=== PATIENT | female | born 1955 | race Asian ===

== ENCOUNTER 2023-01-26 18:47 | Inpatient (IN) | payer MEDICARE, OTHER ==
[~2023-01-26] VITALS: Ht 167.6 cm; Wt 54.4 kg
[2023-01-26] MEDS ORDERED: DIVA500T4 PO (19:24)
[2023-01-26] MEDS ORDERED: CALC-1143 PO (19:24)
[2023-01-26] MEDS ORDERED: ACET-2605 PO (19:24)
[2023-01-26] MEDS ORDERED: GLIP10TA11 PO (19:24)
[2023-01-26] MEDS ORDERED: ATOR80TA PO (19:24)
[2023-01-26] MEDS ORDERED: CHOL100043 PO (19:24)
[2023-01-26] MEDS ORDERED: GLUC1KIT SQ (19:24)
[2023-01-26] MEDS ORDERED: GABA-532 PO (19:24)
[2023-01-26] MEDS ORDERED: AMAN100T PO (19:24)
[2023-01-26] MEDS ORDERED: VALB40CA2 PO (19:25)
[2023-01-26] MEDS ORDERED: INSU100V28 SQ (19:25)
[2023-01-26] MEDS ORDERED: LEVO125T8 PO (19:25)
[2023-01-26] MEDS ORDERED: OLAN5TAB3 PO (19:25)
[2023-01-26] MEDS ORDERED: LOSA25TA27 PO (19:25)
[2023-01-26 19:31] VITALS: O2SAT 98
[2023-01-26 19:59] LABS: CARBON DIOXIDE 28 mmol/L (21-32); CHLORIDE 105 mmol/L (98-107); CREATININE 0.7 mg/dL (0.6-1.3); GLUCOSE 112 mg/dL (74-106); POTASSIUM 4.6 mmol/L (3.5-5.1); SODIUM SERUM 141 mmol/L (136-145); UREA NITROGEN, BLOOD 18 mg/dL (7-18)
[2023-01-26 20:02] LABS: ALANINE AMINOTRANSFERASE 44 U/L (12-78); ALKALINE PHOSPHATASE 55 U/L (46-116); ASPARTATE AMINOTRANSFERASE 35 U/L (15-37); BILIRUBIN,DIRECT 0.1 mg/dL (0.0-0.2); BILIRUBIN,TOTAL 0.5 mg/dL (0.2-1.0); LIPASE 29 U/L (16-77); TOTAL PROTEIN, SERUM 6.9 g/dL (6.4-8.2)
[2023-01-26 20:43] LABS: BASOPHILS # (AUTO) 0.1 K/uL (0.0-0.2); BASOPHILS % (AUTO) 0.5 % (0.0-2.0); EOSINOPHILS # (AUTO) 0.2 K/uL (0.0-0.7); EOSINOPHILS % (AUTO) 1.8 % (0.0-6.0); HEMATOCRIT 44 % (33-45); HEMOGLOBIN 14.4 g/dL (11.5-14.8); LYMPHOCYTES # (AUTO) 2.6 K/uL (0.8-4.8); LYMPHOCYTES % (AUTO) 23.9 % (20.0-44.0); MEAN CORPUSCULAR HEMOGLOBIN 27 PG (26.0-33.0); MEAN CORPUSCULAR HGB CONC 33 g/dl (31.0-36.0); MEAN CORPUSCULAR VOLUME 82 fL (82-100); MONOCYTES # (AUTO) 1.5 K/uL (0.1-1.30); NEUTROPHILS # (AUTO) 6.5 K/uL (1.8-8.9); NEUTROPHILS % (AUTO) 59.8 % (43.0-81.0); PLATELET COUNT (AUTO) 264 K/uL (150-450); RED BLOOD CELL COUNT(AUTO) 5.35 MIL/uL (4.0-5.2); RED CELL DISTRIBUTION WIDTH 15.3 % (11.5-15.0); WHITE BLOOD COUNT (AUTO) 10.9 K/uL (4.3-11.0)
[2023-01-26] MEDS ORDERED: MORPHINE SULFATE INJ 2 MG/ML DISP.SYRIN IV PRN (21:30)
[2023-01-26] MEDS ORDERED: DEXTROSE 50%-WATER 50 ML DISP.SYRIN IV PRN (21:30)
[2023-01-26] MEDS ORDERED: ONDANSETRON HCL/PF 4 MG/2 ML VIAL IVP PRN (21:30)
[2023-01-26] MEDS ORDERED: ACETAMINOPHEN 325 MG TABLET PO PRN (21:30)
[2023-01-26] MEDS ORDERED: Medication Not On Formulary EA (Valbenazine Tosylate (Ingrezza) 40 MG) PO SCH (22:00)
[2023-01-26 22:21] LABS: APPEARANCE,URINE SLIGHTLY CLOUDY (CLEAR); BILIRUBIN,URINE NEGATIVE (NEGATIVE); BLOOD, URINE TRACE-INTA Ery/uL (NEGATIVE); COLOR,URINE YELLOW (YELLOW); KETONES,URINE NEGATIVE (NEGATIVE); LEUKOCYTE ESTERASE ,URINE 3+ (NEGATIVE); NITRITE, URINE NEGATIVE (NEGATIVE); PH,URINE 6.5 (5.0-8.0); PROTEIN,URINE NEGATIVE (NEGATIVE); UGLUCOSE NEGATIVE (NEGATIVE); UROBILINOGEN,URINE 0.2 EU/dL (0.2)
[2023-01-26 22:26] LABS: ADD URINE CULTURE YES; BACTERIA,URINE 3+ /HPF (None Seen); WBC,URINE 51-80 /HPF (0-3)
[2023-01-26 22:50] VITALS: BP 110/52; TEMP 98.3; O2SAT 98
[2023-01-26] MEDS: BLOOD SUGAR DIAGNOSTIC 1 EACH STRIP IN SCH (23:23)
[2023-01-26] MEDS ORDERED: CEFTRIAXONE 1GM BAG (ER ONLY) 50 ML IV ONE (23:25)
[2023-01-26] MEDS: CEFTRIAXONE 1 G in IV D5W 50 ML IV SCH (23:27)
[2023-01-26] MEDS: INSULIN REGULAR, HUMAN 100 UNIT/ML 3 ML VIAL SQ PRN (23:48)
[2023-01-27] MEDS: BLOOD SUGAR DIAGNOSTIC 1 EACH STRIP IN SCH ×4 (06:30→22:12)
[2023-01-27] MEDS: INSULIN REGULAR, HUMAN 100 UNIT/ML 3 ML VIAL SQ PRN ×3 (06:33→22:13)
[2023-01-27 07:00] VITALS: BP 101/76; TEMP 97.7; O2SAT 94
[2023-01-27] MEDS: LEVOTHYROXINE SODIUM 125 MCG TABLET PO SCH (07:42)
[2023-01-27 07:48] LABS: INR 0.91 (0.91-1.10); PARTIAL THROMBOPLASTIN TIME 20.4 SEC (24.3-34.3); PROTHROMBIN TIME 9.7 SECS (9.2-11.1)
[2023-01-27 07:49] LABS: BASOPHILS # (AUTO) 0.1 K/uL (0.0-0.2); BASOPHILS % (AUTO) 0.7 % (0.0-2.0); EOSINOPHILS # (AUTO) 0.2 K/uL (0.0-0.7); EOSINOPHILS % (AUTO) 1.6 % (0.0-6.0); HEMATOCRIT 42 % (33-45); HEMOGLOBIN 13.9 g/dL (11.5-14.8); LYMPHOCYTES # (AUTO) 2.3 K/uL (0.8-4.8); LYMPHOCYTES % (AUTO) 22.1 % (20.0-44.0); MEAN CORPUSCULAR HEMOGLOBIN 27 PG (26.0-33.0); MEAN CORPUSCULAR HGB CONC 33 g/dl (31.0-36.0); MEAN CORPUSCULAR VOLUME 83 fL (82-100); MONOCYTES # (AUTO) 1.5 K/uL (0.1-1.30); MONOCYTES % (AUTO) 14.6 % (2.0-12.0); NEUTROPHILS # (AUTO) 6.4 K/uL (1.8-8.9); PLATELET COUNT (AUTO) 257 K/uL (150-450); RED BLOOD CELL COUNT(AUTO) 5.12 MIL/uL (4.0-5.2); RED CELL DISTRIBUTION WIDTH 15.4 % (11.5-15.0); WHITE BLOOD COUNT (AUTO) 10.5 K/uL (4.3-11.0)
[2023-01-27 08:01] LABS: ALBUMIN 2.8 g/dL (3.4-5.0); BILIRUBIN,TOTAL 0.5 mg/dL (0.2-1.0); CALCIUM, SERUM 8.7 mg/dL (8.5-10.1); CREATININE 0.5 mg/dL (0.6-1.3); MAGNESIUM 2.5 mg/dL (1.8-2.4); PHOSPHORUS 3.8 mg/dL (2.5-4.9); POTASSIUM 4.6 mmol/L (3.5-5.1); TOTAL PROTEIN, SERUM 6.9 g/dL (6.4-8.2)
[2023-01-27] MEDS: DOCUSATE SODIUM 100 MG CAPSULE PO SCH ×2 (08:05→17:53)
[2023-01-27] MEDS: AMANTADINE HCL 100 MG CAPSULE PO SCH ×2 (08:05→17:53)
[2023-01-27] MEDS: LOSARTAN POTASSIUM 25 MG TABLET PO SCH (08:06)
[2023-01-27] MEDS: DIVALPROEX SODIUM 500 MG TABLET.DR PO SCH ×2 (08:06→17:53)
[2023-01-27] MEDS: CALCIUM CARBONATE (1250) 500 MG TABLET PO SCH (08:06)
[2023-01-27] MEDS: POLYETHYLENE GLYCOL 3350 17 GM POWD.PACK PO SCH (09:33)
[2023-01-27] MEDS: HEPARIN SODIUM, PORCINE 5000 UNITS/1 ML VIAL SQ SCH ×2 (09:35→20:57)
[2023-01-27 16:00] VITALS: BP 128/93; TEMP 97.6; O2SAT 97
[2023-01-27] MEDS: GLUCERNA SHAKE 237 ML CAN PO SCH (17:53)
[2023-01-27] MEDS: ATORVASTATIN 40 MG TABLET PO SCH (17:53)
[2023-01-27] MEDS: GABAPENTIN 100 MG CAPSULE PO SCH (17:53)
[2023-01-27] MEDS ORDERED: OLANZAPINE 5 MG TABLET PO SCH (18:00)
[2023-01-27] MEDS: OLANZAPINE 5 MG TABLET PO SCH (18:07)
[2023-01-27 20:00] VITALS: BP 124/71; TEMP 99; O2SAT 94
[2023-01-27] MEDS: CEFTRIAXONE 1 G in IV D5W 50 ML IV SCH (22:37)
[2023-01-28] MEDS: BLOOD SUGAR DIAGNOSTIC 1 EACH STRIP IN SCH ×4 (06:48→21:36)
[2023-01-28 07:00] VITALS: BP 131/74; TEMP 97.9; O2SAT 97
[2023-01-28] MEDS: LEVOTHYROXINE SODIUM 125 MCG TABLET PO SCH (07:22)
[2023-01-28] MEDS: DIVALPROEX SODIUM 500 MG TABLET.DR PO SCH ×2 (08:12→16:04)
[2023-01-28] MEDS: LOSARTAN POTASSIUM 25 MG TABLET PO SCH (08:13)
[2023-01-28] MEDS: AMANTADINE HCL 100 MG CAPSULE PO SCH ×2 (08:13→16:04)
[2023-01-28] MEDS: DOCUSATE SODIUM 100 MG CAPSULE PO SCH ×2 (08:13→16:04)
[2023-01-28] MEDS: CALCIUM CARBONATE (1250) 500 MG TABLET PO SCH (08:13)
[2023-01-28] MEDS: POLYETHYLENE GLYCOL 3350 17 GM POWD.PACK PO SCH (08:14)
[2023-01-28] MEDS: GLUCERNA SHAKE 237 ML CAN PO SCH ×2 (08:14→17:10)
[2023-01-28] MEDS: HEPARIN SODIUM, PORCINE 5000 UNITS/1 ML VIAL SQ SCH ×2 (08:22→20:29)
[2023-01-28] MEDS: INSULIN REGULAR, HUMAN 100 UNIT/ML 3 ML VIAL SQ PRN ×3 (11:20→22:20)
[2023-01-28 12:40] LABS: THYROID STIMULATING HORMONE 0.497 uIU/mL (0.358-3.74)
[2023-01-28 16:00] VITALS: BP 112/78; TEMP 97.9; O2SAT 94
[2023-01-28] MEDS: OLANZAPINE 5 MG TABLET PO SCH (17:10)
[2023-01-28] MEDS: ATORVASTATIN 40 MG TABLET PO SCH (17:10)
[2023-01-28] MEDS: GABAPENTIN 100 MG CAPSULE PO SCH (17:10)
[2023-01-28 20:00] VITALS: BP 116/64; TEMP 98.6; O2SAT 94
[2023-01-28] MEDS: CEFTRIAXONE 1 G in IV D5W 50 ML IV SCH (22:18)
[2023-01-29] MEDS: INSULIN REGULAR, HUMAN 100 UNIT/ML 3 ML VIAL SQ PRN ×3 (06:50→17:09)
[2023-01-29] MEDS: BLOOD SUGAR DIAGNOSTIC 1 EACH STRIP IN SCH ×3 (07:30→17:06)
[2023-01-29 08:00] VITALS: BP 125/78; TEMP 98.2; O2SAT 95
[2023-01-29] MEDS: POLYETHYLENE GLYCOL 3350 17 GM POWD.PACK PO SCH (08:53)
[2023-01-29] MEDS: AMANTADINE HCL 100 MG CAPSULE PO SCH ×2 (08:53→17:05)
[2023-01-29] MEDS: LEVOTHYROXINE SODIUM 125 MCG TABLET PO SCH (08:53)
[2023-01-29] MEDS: DIVALPROEX SODIUM 500 MG TABLET.DR PO SCH ×2 (08:53→17:05)
[2023-01-29 08:54] VITALS: BP 125/78
[2023-01-29] MEDS: LOSARTAN POTASSIUM 25 MG TABLET PO SCH (08:54)
[2023-01-29] MEDS: DOCUSATE SODIUM 100 MG CAPSULE PO SCH ×2 (08:54→17:05)
[2023-01-29] MEDS: CALCIUM CARBONATE (1250) 500 MG TABLET PO SCH (08:54)
[2023-01-29] MEDS: GLUCERNA SHAKE 237 ML CAN PO SCH ×2 (08:55→17:06)
[2023-01-29] MEDS: HEPARIN SODIUM, PORCINE 5000 UNITS/1 ML VIAL SQ SCH (09:00)
[2023-01-29] MEDS: GABAPENTIN 100 MG CAPSULE PO SCH (18:13)
[2023-01-29] MEDS: ATORVASTATIN 40 MG TABLET PO SCH (18:13)
[2023-01-29] MEDS: OLANZAPINE 5 MG TABLET PO SCH (18:14)
[2023-01-30 01:06] LABS: FOLIC ACID > 20.0 ng/mL (>3.0)
== END 2023-01-29 18:30 | DRG 689 ==
LOC: ER 19:02 → MED 22:04
PROVIDERS: ADMIT Internal Medicine; ATTEND Nurse Practitioner Acute Care
DX: N39.0 Urinary tract infection, site not specified (principal); G93.41 Metabolic encephalopathy; E44.0 Moderate protein-calorie malnutrition; Z68.1 Body mass index [BMI] 19.9 or less, adult; R62.7 Adult failure to thrive; E03.9 Hypothyroidism, unspecified; E78.5 Hyperlipidemia, unspecified; E88.09 Other disorders of plasma-protein metabolism, not elsewhere classified; I10 Essential (primary) hypertension; Z79.84 Long term (current) use of oral hypoglycemic drugs; F03.90 Unspecified dementia, unspecified severity, without behavioral disturbance, psychotic disturbance, mood disturbance, and anxiety; M62.50 Muscle wasting and atrophy, not elsewhere classified, unspecified site; F25.0 Schizoaffective disorder, bipolar type; E11.9 Type 2 diabetes mellitus without complications; H70.93 Unspecified mastoiditis, bilateral; B96.89 Other specified bacterial agents as the cause of diseases classified elsewhere
CPT/HCPCS: 36415; 70450-TC; 71045-TC; 80048-TC; 80053-TC; 80076-TC; 80164-TC; 81001; 82607-TC; 82962-TC; 83605-TC; 83690-TC; 83735-TC; 83921; 84100-TC; 84439-TC; 84443-TC; 84484-TC; 85025-TC; 85730-TC; 87081-TC; 87086-TC; 92526; 92611-TC; 97110-TC; 97116-TC; 97530-TC; A4223; G0378; J0696; J1644; J1815; J7050; J7060

== ENCOUNTER 2023-07-26 23:14 | Inpatient (IN) | payer MEDICARE, OTHER ==
[~2023-07-26] VITALS: Ht 162.6 cm; Wt 58.1 kg
[~2023-07-26 23:14] MED LIST: ACET-2605 PO; AMAN100T PO; ATOR80TA PO; CALC-1143 PO; CHOL100043 PO; DIVA500T4 PO; GABA-532 PO; GLIP10TA11 PO; GLUC1KIT SQ; INSU100V28 SQ; LEVO125T8 PO; LOSA25TA27 PO; OLAN5TAB3 PO; VALB40CA2 PO
[2023-07-27 00:12] LABS: BASOPHILS # (AUTO) 0.1 K/uL (0.0-0.2); BASOPHILS % (AUTO) 0.9 % (0.0-2.0); EOSINOPHILS # (AUTO) 0.2 K/uL (0.0-0.7); EOSINOPHILS % (AUTO) 1.9 % (0.0-6.0); HEMATOCRIT 44 % (33-45); HEMOGLOBIN 14.4 g/dL (11.5-14.8); LYMPHOCYTES # (AUTO) 2.8 K/uL (0.8-4.8); LYMPHOCYTES % (AUTO) 22.2 % (20.0-44.0); MEAN CORPUSCULAR HEMOGLOBIN 26 PG (26.0-33.0); MEAN CORPUSCULAR HGB CONC 32 g/dl (31.0-36.0); MEAN CORPUSCULAR VOLUME 81 fL (82-100); MONOCYTES # (AUTO) 1.5 K/uL (0.1-1.30); NEUTROPHILS # (AUTO) 7.9 K/uL (1.8-8.9); PLATELET COUNT (AUTO) 293 K/uL (150-450); RED CELL DISTRIBUTION WIDTH 13.9 % (11.5-15.0); WHITE BLOOD COUNT (AUTO) 12.6 K/uL (4.3-11.0)
[2023-07-27 00:17] LABS: INR 0.94 (0.91-1.10)
[2023-07-27 00:34] LABS: CALCIUM, SERUM 9.5 mg/dL (8.5-10.1); CREATININE 0.6 mg/dL (0.6-1.3); POTASSIUM 5.5 mmol/L (3.5-5.1)
[2023-07-27] MEDS: ALBUTEROL FS 2.5 MG/0.5 ML VIAL.NEB NEB ONE (00:55)
[2023-07-27 00:56] VITALS: O2SAT 94
[2023-07-27] MEDS ORDERED: ALBUTEROL FS 2.5 MG/0.5 ML VIAL.NEB ONE (00:57)
[2023-07-27 01:08] VITALS: O2SAT 99
[2023-07-27] MEDS ORDERED: FUROSEMIDE 20 MG/2 ML VIAL ONE (01:10)
[2023-07-27] MEDS ORDERED: SODIUM BICARBONATE SYR 50 MEQ/50 ML DISP.SYRIN ONE (01:11)
[2023-07-27 01:19] LABS: APPEARANCE,URINE CLEAR (CLEAR); BILIRUBIN,URINE NEGATIVE (NEGATIVE); BLOOD, URINE NEGATIVE Ery/uL (NEGATIVE); COLOR,URINE YELLOW (YELLOW); KETONES,URINE NEGATIVE (NEGATIVE); LEUKOCYTE ESTERASE ,URINE TRACE (NEGATIVE); NITRITE, URINE NEGATIVE (NEGATIVE); PH,URINE 6.5 (5.0-8.0); PROTEIN,URINE NEGATIVE (NEGATIVE); UGLUCOSE NEGATIVE (NEGATIVE); UROBILINOGEN,URINE 0.2 EU/dL (0.2)
[2023-07-27] MEDS: IV NS 0.9% 1,000 ML BAG IV ONE (01:30)
[2023-07-27] MEDS: FUROSEMIDE 40 MG/4 ML VIAL IV ONE (01:30)
[2023-07-27] MEDS: SODIUM BICARBONATE SYR 50 MEQ/50 ML DISP.SYRIN IV ONE (01:30)
[2023-07-27 02:01] LABS: ADD URINE CULTURE YES; BACTERIA,URINE Rare /HPF (None Seen); RBC,URINE 0-2 /HPF (0-2); SQUAMOUS EPITHELIAL CELL,UR Moderate /HPF (None Seen)
[2023-07-27] MEDS ORDERED: BENZ0.5T43 PO (07:49)
[2023-07-27] MEDS ORDERED: CALC500T88 PO (07:49)
[2023-07-27] MEDS ORDERED: DIVA250T47 PO (07:49)
[2023-07-27] MEDS ORDERED: OLAN2.5T3 PO (07:49)
[2023-07-27] MEDS ORDERED: ACETAMINOPHEN 325 MG TABLET PO PRN (12:00)
[2023-07-27] MEDS ORDERED: MAGNESIUM HYDROXIDE 30 ML UDC PO PRN (12:00)
[2023-07-27] MEDS ORDERED: ONDANSETRON HCL/PF 4 MG/2 ML VIAL IVP PRN (12:00)
[2023-07-27] MEDS ORDERED: MAG HYDROX/AL HYDROX/SIMETH 30 ML UDC PO PRN (12:00)
[2023-07-27] MEDS ORDERED: ENOXAPARIN SODIUM 40 MG/0.4 ML DISP.SYRIN SQ ONE ×2 (12:09→12:31)
[2023-07-27] MEDS: ENOXAPARIN SODIUM 40 MG/0.4 ML DISP.SYRIN SQ SCH (12:32)
[2023-07-27 16:00] VITALS: BP 152/93; TEMP 98.1; O2SAT 98
[2023-07-27] MEDS: IV D5/0.45 NACL 1,000 ML IV PRN (16:53)
[2023-07-27 17:10] LABS: ALBUMIN 3.2 g/dL (3.4-5.0); BILIRUBIN,TOTAL 0.6 mg/dL (0.2-1.0); CALCIUM, SERUM 8.4 mg/dL (8.5-10.1); CREATININE 0.7 mg/dL (0.6-1.3); TOTAL PROTEIN, SERUM 7.7 g/dL (6.4-8.2)
[2023-07-27] MEDS ORDERED: ACETAMINOPHEN ES 500 MG TABLET PO PRN (19:00)
[2023-07-27] MEDS ORDERED: DEXTROSE 50%-WATER 50 ML DISP.SYRIN IV PRN (19:00)
[2023-07-27] MEDS ORDERED: GLUCAGON,HUMAN RECOMBINANT 1 MG/VIAL VIAL SQ PRN (19:00)
[2023-07-27 20:00] VITALS: BP 142/71; TEMP 98.8; O2SAT 96
[2023-07-27] MEDS: BLOOD SUGAR DIAGNOSTIC 1 EACH STRIP VI SCH (21:10)
[2023-07-27] MEDS: *INSULIN REGULAR(HUMULIN R)HUM 100 UNIT/ML VIAL SQ PRN (21:18)
[2023-07-27] MEDS: Z GUARD REMEDY 4 OZ OINT TP PRN (21:20)
[2023-07-27] MEDS: ZOLPIDEM TARTRATE 5 MG TABLET PO PRN (22:48)
[2023-07-28] MEDS: INSULIN REGULAR, HUMAN 100 UNIT/ML 3 ML VIAL SQ PRN (06:30)
[2023-07-28 07:54] LABS: BASOPHILS # (AUTO) 0.1 K/uL (0.0-0.2); EOSINOPHILS # (AUTO) 0.2 K/uL (0.0-0.7); EOSINOPHILS % (AUTO) 1.9 % (0.0-6.0); HEMATOCRIT 41 % (33-45); HEMOGLOBIN 13.8 g/dL (11.5-14.8); LYMPHOCYTES # (AUTO) 2.1 K/uL (0.8-4.8); MEAN CORPUSCULAR HEMOGLOBIN 27 PG (26.0-33.0); MEAN CORPUSCULAR HGB CONC 34 g/dl (31.0-36.0); MEAN CORPUSCULAR VOLUME 80 fL (82-100); MONOCYTES # (AUTO) 1.2 K/uL (0.1-1.30); MONOCYTES % (AUTO) 11.9 % (2.0-12.0); NEUTROPHILS # (AUTO) 6.8 K/uL (1.8-8.9); NEUTROPHILS % (AUTO) 65.2 % (43.0-81.0); PLATELET COUNT (AUTO) 302 K/uL (150-450); RED BLOOD CELL COUNT(AUTO) 5.15 MIL/uL (4.0-5.2); RED CELL DISTRIBUTION WIDTH 13.7 % (11.5-15.0); WHITE BLOOD COUNT (AUTO) 10.4 K/uL (4.3-11.0)
[2023-07-28 07:55] LABS: CALCIUM, SERUM 8.4 mg/dL (8.5-10.1); CREATININE 0.6 mg/dL (0.6-1.3); MAGNESIUM 2.3 mg/dL (1.8-2.4); PHOSPHORUS 3.6 mg/dL (2.5-4.9); POTASSIUM 4.3 mmol/L (3.5-5.1)
[2023-07-28 08:00] VITALS: BP 151/61; TEMP 97.4; O2SAT 99
[2023-07-28] MEDS: LEVOTHYROXINE SODIUM 125 MCG TABLET PO SCH (08:48)
[2023-07-28] MEDS: DIVALPROEX SODIUM 250 MG TABLET.DR PO SCH (08:48)
[2023-07-28] MEDS: PANTOPRAZOLE 40 MG TABLET.DR PO SCH (08:48)
[2023-07-28] MEDS: BENZTROPINE MESYLATE (1 MG) 1 MG TABLET PO SCH (08:49)
[2023-07-28] MEDS: LOSARTAN POTASSIUM 25 MG TABLET PO SCH (08:49)
[2023-07-28] MEDS: OLANZAPINE 2.5 MG TABLET PO SCH (08:49)
[2023-07-28] MEDS: CHOLECALCIFEROL 1,000 UNIT TABLET (VIT D3) PO SCH (08:49)
[2023-07-28] MEDS: CALCIUM CARBONATE (1250) 500 MG TABLET PO SCH (08:54)
[2023-07-28] MEDS: glipiZIDE 10 MG TABLET PO SCH (08:54)
[2023-07-28 09:15] LABS: THYROID STIMULATING HORMONE 1.378 uIU/mL (0.358-3.74)
[2023-07-28 16:00] VITALS: BP 131/62; TEMP 97.9; O2SAT 96
[2023-07-28] MEDS: GABAPENTIN 100 MG CAPSULE PO SCH (17:06)
[2023-07-28] MEDS: ATORVASTATIN 40 MG TABLET PO SCH (17:06)
[2023-07-28 20:00] VITALS: BP 132/89; TEMP 99; O2SAT 96
[2023-07-29 08:00] VITALS: BP 140/97; TEMP 98.6; O2SAT 98
[2023-07-29 08:23] LABS: BASOPHILS # (AUTO) 0.1 K/uL (0.0-0.2); BASOPHILS % (AUTO) 0.9 % (0.0-2.0); EOSINOPHILS # (AUTO) 0.2 K/uL (0.0-0.7); EOSINOPHILS % (AUTO) 1.2 % (0.0-6.0); HEMATOCRIT 40 % (33-45); HEMOGLOBIN 13.2 g/dL (11.5-14.8); LYMPHOCYTES # (AUTO) 1.9 K/uL (0.8-4.8); LYMPHOCYTES % (AUTO) 15.2 % (20.0-44.0); MEAN CORPUSCULAR HEMOGLOBIN 26 PG (26.0-33.0); MEAN CORPUSCULAR HGB CONC 33 g/dl (31.0-36.0); MEAN CORPUSCULAR VOLUME 80 fL (82-100); MONOCYTES # (AUTO) 1.5 K/uL (0.1-1.30); MONOCYTES % (AUTO) 12.1 % (2.0-12.0); NEUTROPHILS # (AUTO) 8.6 K/uL (1.8-8.9); NEUTROPHILS % (AUTO) 70.6 % (43.0-81.0); PLATELET COUNT (AUTO) 291 K/uL (150-450); RED BLOOD CELL COUNT(AUTO) 5.02 MIL/uL (4.0-5.2); RED CELL DISTRIBUTION WIDTH 13.9 % (11.5-15.0); WHITE BLOOD COUNT (AUTO) 12.2 K/uL (4.3-11.0)
[2023-07-29 08:48] LABS: CALCIUM, SERUM 8.3 mg/dL (8.5-10.1); CREATININE 0.8 mg/dL (0.6-1.3); MAGNESIUM 2.2 mg/dL (1.8-2.4); PHOSPHORUS 3.2 mg/dL (2.5-4.9); POTASSIUM 4.3 mmol/L (3.5-5.1)
[2023-07-29 16:00] VITALS: BP 110/76; TEMP 98.5; O2SAT 96
[2023-07-29 20:00] VITALS: BP 119/57; TEMP 98.6; O2SAT 96
[2023-07-30 06:48] LABS: BASOPHILS # (AUTO) 0.1 K/uL (0.0-0.2); BASOPHILS % (AUTO) 0.6 % (0.0-2.0); EOSINOPHILS # (AUTO) 0.3 K/uL (0.0-0.7); EOSINOPHILS % (AUTO) 2.2 % (0.0-6.0); HEMATOCRIT 40 % (33-45); LYMPHOCYTES # (AUTO) 2.8 K/uL (0.8-4.8); LYMPHOCYTES % (AUTO) 23.1 % (20.0-44.0); MEAN CORPUSCULAR HEMOGLOBIN 27 PG (26.0-33.0); MEAN CORPUSCULAR HGB CONC 33 g/dl (31.0-36.0); MEAN CORPUSCULAR VOLUME 81 fL (82-100); MONOCYTES # (AUTO) 1.7 K/uL (0.1-1.30); MONOCYTES % (AUTO) 13.8 % (2.0-12.0); NEUTROPHILS # (AUTO) 7.2 K/uL (1.8-8.9); NEUTROPHILS % (AUTO) 60.3 % (43.0-81.0); PLATELET COUNT (AUTO) 274 K/uL (150-450); RED BLOOD CELL COUNT(AUTO) 4.85 MIL/uL (4.0-5.2); RED CELL DISTRIBUTION WIDTH 14.2 % (11.5-15.0)
[2023-07-30 06:58] LABS: CALCIUM, SERUM 8.3 mg/dL (8.5-10.1); CREATININE 0.7 mg/dL (0.6-1.3); PHOSPHORUS 3.5 mg/dL (2.5-4.9); POTASSIUM 4.1 mmol/L (3.5-5.1)
[2023-07-30 08:00] VITALS: BP 136/100; TEMP 100.1; O2SAT 97
[2023-07-30 08:20] VITALS: BP 132/100
== END 2023-07-30 12:50 | DRG 641 ==
LOC: ER 23:20 → TRANSITION 07-27 06:14 → MED 07-27 14:48
PROVIDERS: ADMIT Student in an Organized Health Care Education/Training Program; ATTEND Student in an Organized Health Care Education/Training Program
DX: R62.7 Adult failure to thrive (principal); N39.0 Urinary tract infection, site not specified; E46 Unspecified protein-calorie malnutrition; G93.49 Other encephalopathy; E87.5 Hyperkalemia; F31.9 Bipolar disorder, unspecified; R13.10 Dysphagia, unspecified; E03.9 Hypothyroidism, unspecified; E11.42 Type 2 diabetes mellitus with diabetic polyneuropathy; E78.5 Hyperlipidemia, unspecified; F25.9 Schizoaffective disorder, unspecified; I10 Essential (primary) hypertension; Z79.84 Long term (current) use of oral hypoglycemic drugs; Z68.22 Body mass index [BMI] 22.0-22.9, adult; F03.90 Unspecified dementia, unspecified severity, without behavioral disturbance, psychotic disturbance, mood disturbance, and anxiety; S91.101A Unspecified open wound of right great toe without damage to nail, initial encounter; X58.XXXA Exposure to other specified factors, initial encounter; Y93.9 Activity, unspecified; Y92.129 Unspecified place in nursing home as the place of occurrence of the external cause; S91.204A Unspecified open wound of right lesser toe(s) with damage to nail, initial encounter; S81.802A Unspecified open wound, left lower leg, initial encounter; Z79.4 Long term (current) use of insulin; D72.829 Elevated white blood cell count, unspecified
CPT/HCPCS: 36415; 71045-TC; 80048-TC; 80053-TC; 81001; 82962-TC; 83735-TC; 84100-TC; 84443-TC; 85025-TC; 85730-TC; 87081-TC; 87086-TC; 97112-TC; 97116-TC; 97530-TC; A4223; G0378; J1650; J1815; J1940; J3490; J7030

== ENCOUNTER 2024-01-25 17:00 | Inpatient (IN) | payer MEDICARE, OTHER ==
[~2024-01-25] VITALS: Ht 160 cm; Wt 59.2 kg
[~2024-01-25 17:00] MED LIST changes: -AMAN100T PO; +BENZ0.5T43 PO; -CALC-1143 PO; +CALC500T88 PO; +DIVA250T47 PO; -DIVA500T4 PO; +OLAN2.5T3 PO; -OLAN5TAB3 PO; -VALB40CA2 PO
[2024-01-25] MEDS: IV NS 0.9% 1,000 ML BAG IV ONE (17:47)
[2024-01-25 17:48] LABS: BASOPHILS # (AUTO) 0.1 K/uL (0.0-0.2); BASOPHILS % (AUTO) 0.6 % (0.0-2.0); EOSINOPHILS # (AUTO) 0.2 K/uL (0.0-0.7); EOSINOPHILS % (AUTO) 1.3 % (0.0-6.0); HEMATOCRIT 40 % (33-45); HEMOGLOBIN 13.1 g/dL (11.5-14.8); LYMPHOCYTES # (AUTO) 1.5 K/uL (0.8-4.8); LYMPHOCYTES % (AUTO) 10.6 % (20.0-44.0); MEAN CORPUSCULAR HEMOGLOBIN 26 PG (26.0-33.0); MEAN CORPUSCULAR HGB CONC 33 g/dl (31.0-36.0); MEAN CORPUSCULAR VOLUME 80 fL (82-100); MONOCYTES % (AUTO) 13.8 % (2.0-12.0); NEUTROPHILS # (AUTO) 10.6 K/uL (1.8-8.9); NEUTROPHILS % (AUTO) 73.7 % (43.0-81.0); PLATELET COUNT (AUTO) 334 K/uL (150-450); RED BLOOD CELL COUNT(AUTO) 4.96 MIL/uL (4.0-5.2); RED CELL DISTRIBUTION WIDTH 13.6 % (11.5-15.0); WHITE BLOOD COUNT (AUTO) 14.3 K/uL (4.3-11.0)
[2024-01-25 17:50] LABS: CARBON DIOXIDE 31 mmol/L (21-32); CHLORIDE 102 mmol/L (98-107); CREATININE 0.5 mg/dL (0.6-1.3); GLUCOSE 116 mg/dL (74-106); POTASSIUM 4.6 mmol/L (3.5-5.1); SODIUM SERUM 139 mmol/L (136-145); UREA NITROGEN, BLOOD 13 mg/dL (7-18)
[2024-01-25 17:51] LABS: INR 0.96 (0.91-1.10); PARTIAL THROMBOPLASTIN TIME 26.1 SEC (24.3-34.3); PROTHROMBIN TIME 10.2 SECS (9.2-11.1)
[2024-01-25 17:56] LABS: ALANINE AMINOTRANSFERASE 32 U/L (12-78); ALBUMIN 3.5 g/dL (3.4-5.0); ALKALINE PHOSPHATASE 74 U/L (46-116); ASPARTATE AMINOTRANSFERASE 13 U/L (15-37); BILIRUBIN,DIRECT 0.1 mg/dL (0.0-0.2); BILIRUBIN,TOTAL 0.4 mg/dL (0.2-1.0); LIPASE 58 U/L (16-77); TOTAL PROTEIN, SERUM 7.5 g/dL (6.4-8.2)
[2024-01-25 18:00] LABS: LACTIC ACID 2.7 mmol/L (0.4-2.0)
[2024-01-25] MEDS ORDERED: CALC-1239 PO (18:06)
[2024-01-25] MEDS ORDERED: MAGN400O6 PO (18:06)
[2024-01-25] MEDS ORDERED: BISA10SU11 RC (18:06)
[2024-01-25] MEDS ORDERED: METF-440 PO (18:06)
[2024-01-25] MEDS ORDERED: NA P133E RC (18:06)
[2024-01-25] MEDS ORDERED: ACET-868 PO (18:06)
[2024-01-25] MEDS ORDERED: INSU100I30 SQ (18:06)
[2024-01-25] MEDS ORDERED: ONDANSETRON HCL/PF 4 MG/2 ML VIAL IVP PRN (18:30)
[2024-01-25] MEDS ORDERED: MAGNESIUM HYDROXIDE 30 ML UDC PO PRN ×2 (18:30)
[2024-01-25] MEDS ORDERED: NA PHOS,M-B/NA PHOS,DI-BA 1 EA ENEMA RC PRN (18:30)
[2024-01-25] MEDS ORDERED: Medication Not On Formulary EA (Glucagon,Human Recombinant (Glucagon Emergency Kit) 1 MG SQ PRN (18:30)
[2024-01-25] MEDS ORDERED: Z GUARD REMEDY 4 OZ OINT TP PRN (18:30)
[2024-01-25] MEDS ORDERED: ACETAMINOPHEN 325 MG TABLET PO PRN ×2 (18:30)
[2024-01-25] MEDS ORDERED: BISACODYL SUPP (10 MG) 10 MG/SUPP.RECT SUPP.RECT RC PRN (18:30)
[2024-01-25] MEDS ORDERED: MAG HYDROX/AL HYDROX/SIMETH 30 ML UDC PO PRN (18:30)
[2024-01-25] MEDS ORDERED: DEXTROSE 50%-WATER 50 ML DISP.SYRIN IV PRN (18:30)
[2024-01-25 18:56] LABS: APPEARANCE,URINE CLEAR (CLEAR); BILIRUBIN,URINE NEGATIVE (NEGATIVE); BLOOD, URINE TRACE-INTA Ery/uL (NEGATIVE); COLOR,URINE YELLOW (YELLOW); KETONES,URINE NEGATIVE (NEGATIVE); LEUKOCYTE ESTERASE ,URINE 3+ (NEGATIVE); NITRITE, URINE POSITIVE (NEGATIVE); PROTEIN,URINE NEGATIVE (NEGATIVE); UGLUCOSE NEGATIVE (NEGATIVE); UROBILINOGEN,URINE 0.2 EU/dL (0.2)
[2024-01-25 19:00] LABS: ADD URINE CULTURE YES; BACTERIA,URINE 1+ /HPF (None Seen)
[2024-01-25 19:10] VITALS: O2SAT 97
[2024-01-25 19:35] VITALS: BP 145/68; TEMP 98.6; O2SAT 97
[2024-01-25] MEDS ORDERED: CEFTRIAXONE 1GM BAG (ER ONLY) 50 ML IV ONE (22:00)
[2024-01-25] MEDS: CEFTRIAXONE 1 G in IV D5W 50 ML IV SCH (22:05)
[2024-01-25] MEDS: BLOOD SUGAR DIAGNOSTIC 1 EACH STRIP VI SCH (22:06)
[2024-01-25] MEDS: IV NS 0.9% 1,000 ML IV PRN (22:06)
[2024-01-25] MEDS: INSULIN REGULAR, HUMAN 100 UNIT/ML 3 ML VIAL SQ PRN (22:37)
[2024-01-25] MEDS: INSULIN GLARGINE, 100 UNIT/ML CARTRIDGE SQ SCH (22:38)
[2024-01-26 06:33] LABS: BASOPHILS # (AUTO) 0.1 K/uL (0.0-0.2); BASOPHILS % (AUTO) 0.7 % (0.0-2.0); EOSINOPHILS # (AUTO) 0.2 K/uL (0.0-0.7); EOSINOPHILS % (AUTO) 1.6 % (0.0-6.0); HEMATOCRIT 37 % (33-45); LYMPHOCYTES # (AUTO) 1.3 K/uL (0.8-4.8); LYMPHOCYTES % (AUTO) 10.5 % (20.0-44.0); MEAN CORPUSCULAR HEMOGLOBIN 26 PG (26.0-33.0); MEAN CORPUSCULAR HGB CONC 33 g/dl (31.0-36.0); MEAN CORPUSCULAR VOLUME 79 fL (82-100); MONOCYTES % (AUTO) 16.3 % (2.0-12.0); NEUTROPHILS # (AUTO) 8.6 K/uL (1.8-8.9); NEUTROPHILS % (AUTO) 70.9 % (43.0-81.0); PLATELET COUNT (AUTO) 302 K/uL (150-450); RED BLOOD CELL COUNT(AUTO) 4.64 MIL/uL (4.0-5.2); RED CELL DISTRIBUTION WIDTH 14.1 % (11.5-15.0); WHITE BLOOD COUNT (AUTO) 12.2 K/uL (4.3-11.0)
[2024-01-26 06:49] LABS: CALCIUM, SERUM 8.8 mg/dL (8.5-10.1); CREATININE 0.5 mg/dL (0.6-1.3); MAGNESIUM 2.1 mg/dL (1.8-2.4); PHOSPHORUS 3.2 mg/dL (2.5-4.9); POTASSIUM 4.1 mmol/L (3.5-5.1)
[2024-01-26] MEDS: LEVOTHYROXINE SODIUM 125 MCG TABLET PO SCH (07:26)
[2024-01-26] MEDS: DIVALPROEX SODIUM 250 MG TABLET.DR PO SCH (08:36)
[2024-01-26] MEDS: LOSARTAN POTASSIUM 25 MG TABLET PO SCH (08:36)
[2024-01-26] MEDS: GABAPENTIN 100 MG CAPSULE PO SCH (08:36)
[2024-01-26] MEDS: BENZTROPINE MESYLATE (1 MG) 1 MG TABLET PO SCH (08:36)
[2024-01-26 20:00] VITALS: BP 157/87; TEMP 97.9; O2SAT 95
[2024-01-26] MEDS: *INSULIN REGULAR(HUMULIN R)HUM 100 UNIT/ML VIAL SQ PRN (22:18)
[2024-01-27 08:30] VITALS: BP 147/65; TEMP 99.3; O2SAT 94
[2024-01-27 16:00] VITALS: BP 141/76; TEMP 98.9; O2SAT 98
[2024-01-27 20:00] VITALS: BP 154/83; TEMP 98.4; O2SAT 96
[2024-01-27] MEDS ORDERED: MUPIROCIN OINT 2% 22 GM TUBE ONE (23:19)
[2024-01-27] MEDS: MUPIROCIN OINT 2% 22 GM TUBE NS SCH (23:25)
[2024-01-28 08:27] VITALS: BP 133/72
== END 2024-01-28 15:00 | DRG 689 ==
LOC: ER 17:05 → MED 18:57
PROVIDERS: ADMIT Internal Medicine; ATTEND Internal Medicine
DX: N39.0 Urinary tract infection, site not specified (principal); G93.41 Metabolic encephalopathy; E87.20 Acidosis, unspecified; F03.93 Unspecified dementia, unspecified severity, with mood disturbance; E86.0 Dehydration; E11.9 Type 2 diabetes mellitus without complications; R62.7 Adult failure to thrive; E03.9 Hypothyroidism, unspecified; E78.5 Hyperlipidemia, unspecified; F20.9 Schizophrenia, unspecified; I10 Essential (primary) hypertension; Z79.4 Long term (current) use of insulin; Z79.84 Long term (current) use of oral hypoglycemic drugs; D72.829 Elevated white blood cell count, unspecified; G89.4 Chronic pain syndrome; B95.7 Other staphylococcus as the cause of diseases classified elsewhere; Z68.23 Body mass index [BMI] 23.0-23.9, adult; F31.9 Bipolar disorder, unspecified
CPT/HCPCS: 36415; 71045-TC; 80048-TC; 80076-TC; 81001; 82962-TC; 83605-TC; 83690-TC; 83735-TC; 84100-TC; 85025-TC; 85730-TC; 87040-TC; 87081-TC; 87086-TC; 97112-TC; 97530-TC; A4223; A6403; G0378; J0696; J1815; J7030; J7060